=== PATIENT | female | born 1945 | race Caucasian/White ===

== ENCOUNTER 2016-05-24 22:09 | Emergency (ER) | payer MEDICARE, BC ==
[2016-05-24 22:33] VITALS: BP 156/101
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
== END 2016-05-25 01:57 | disposition home or self-care (01) ==
LOC: ER 22:09
DX: S86.912A Strain of unspecified muscle(s) and tendon(s) at lower leg level, left leg, initial encounter (principal); X58.XXXA Exposure to other specified factors, initial encounter